=== PATIENT | male | born 1945 | race Caucasian/White ===

== ENCOUNTER 2022-02-02 16:58 | Emergency (ER) | payer MEDICARE, BC | END 2022-02-02 18:28 | disposition left against medical advice (07) | LOC: JP.ED 16:58 | DX: F10.129 Alcohol abuse with intoxication, unspecified (principal); S09.90XA Unspecified injury of head, initial encounter; Z72.0 Tobacco use; X58.XXXA Exposure to other specified factors, initial encounter | CPT/HCPCS: 70450; 70486; 72125; 99284-25 ==

== ENCOUNTER 2024-07-19 14:33 | Emergency (ER) | payer MEDICARE, OTHER ==
[2024-07-19] MEDS ORDERED: Sodium Chloride 0.9% 10 ML Syringe FLUSH PRN (15:25)
[2024-07-19 15:54] LABS: BASOPHILS ABSOLUTE AUTO 0.05 K/uL (0.00-0.10); EOSINOPHILS ABSOLUTE AUTO 0.25 K/uL (0.00-0.40); EOSINOPHILS PERCENT AUTO 4.9 % (0.0-5.4); HEMATOCRIT 20.4 % (38.4-49.7); IMMATURE GRAN PERCENT AUTO 0.4 % (0.0-0.7); LYMPHOCYTES ABSOLUTE AUTO 1.06 K/uL (0.8-3.3); LYMPHOCYTES PERCENT AUTO 20.7 % (11.4-47.7); MEAN CORPUSCULAR HEMOGLOBIN 21.7 pg (31.6-35.5); MEAN CORPUSCULAR HGB CONC 29.9 g/dL (31.6-35.5); MEAN CORPUSCULAR VOLUME 72.6 fL (81.4-99.0); MONOCYTES ABSOLUTE AUTO 0.61 K/uL (0.20-0.90); MONOCYTES PERCENT AUTO 11.9 % (3.3-12.6); NEUTROPHILS ABSOLUTE AUTO 3.13 K/uL (1.0-7.6); NEUTROPHILS PERCENT AUTO 61.1 % (40.0-78.1); PLATELET COUNT,PLT 274 K/uL (130-375); RED BLOOD CELL COUNT 2.81 M/uL (4.14-5.76); WHITE BLOOD CELL COUNT,WBC 5.1 K/uL (3.2-11.0)
[2024-07-19 15:57] LABS: HEMOGLOBIN 6.1 g/dL (12.9-16.9); IMMATURE GRAN ABSOLUTE AUTO 0.02 K/uL (0.00-0.23)
[2024-07-19 16:17] LABS: A/G RATIO 1.3 (1.2-2.2); ALANINE AMINOTRANSFERASE,ALT 26 U/L (12-78); ALBUMIN 3.7 g/dL (3.4-5.0); ALKALINE PHOSPHATASE 67 U/L (46-116); ASPARTATE AMNIOTRANSFERASE,AST 21 U/L (15-37); BILIRUBIN TOTAL 0.3 mg/dL (0.2-1.0); BLOOD UREA NITROGEN,BUN 11 mg/dL (7-18); CALCIUM 8.6 mg/dL (8.5-10.1); CARBON DIOXIDE,CO2 25 mmol/L (21-32); CHLORIDE,CL 101 mmol/L (100-108); ESTIMATED GFR 77 mL/min (>60); GLUCOSE RANDOM 95 mg/dL (74-106); MAGNESIUM 2.1 mg/dL (1.8-2.4); PROTEIN TOTAL,TP 6.6 g/dL (6.4-8.2); SODIUM,NA 135 mmol/L (140-148)
[2024-07-19] MEDS: Sodium Chloride 0.9% 250 ML IV SCH (16:51)
[2024-07-19] MEDS: Pantoprazole 40 MG Vial IVPUSH ONE (16:51)
[2024-07-19] MEDS: Sodium Chloride 0.9% 80 ML IV SCH (16:56)
[2024-07-19] MEDS: Iopamidol 612 MG/ML 100 ML Bottle IV PRN (16:56)
[2024-07-19] MEDS: Sodium Chloride 0.9% 10 ML Syringe FLUSH ONE (16:57)
== END 2024-07-19 19:06 | disposition home or self-care (01) ==
LOC: JP.ED 14:33
DX: D50.9 Iron deficiency anemia, unspecified (principal); R91.1 Solitary pulmonary nodule; Z79.899 Other long term (current) drug therapy; Z79.82 Long term (current) use of aspirin; Z79.02 Long term (current) use of antithrombotics/antiplatelets
CPT/HCPCS: 36415; 36430; 70450; 74177; 80053; 80307; 82272; 83735; 85025; 86850; 86900; 86901; 86920; 86922; 96374; 99284; J2470; J3490; J7050; P9016; Q9967